=== PATIENT | female | born 1975 ===

== ENCOUNTER 2017-08-21 09:43 | Day surgery (SDC) | payer BC ==
[2017-08-20 12:26] VITALS: BMI 18.6
[2017-08-21] MEDS ORDERED: BUPIVACAINE HCL/PF 0.5% (5MG/ML) 10 ML VIAL ONE (11:28)
[2017-08-21] MEDS ORDERED: MICROFIBRILLAR COLLAGEN 1 GM EACH ONE (11:29)
[2017-08-21] MEDS ORDERED: PROPOFOL 20 ML ONE (11:30)
[2017-08-21] MEDS ORDERED: MIDAZOLAM HCL 2 MG/2 ML SINGLE DOSE VIAL ONE (11:30)
[2017-08-21] MEDS ORDERED: SUCCINYLCHOLINE CHLORIDE 200 MG/10 ML VIAL ONE (11:31)
[2017-08-21] MEDS ORDERED: DEXAMETHASONE SOD PHOSPHATE 4 MG/1 ML VIAL ONE (11:31)
[2017-08-21] MEDS ORDERED: KETOROLAC TROMETHAMINE 30 MG/1 ML VIAL ONE (11:31)
[2017-08-21] MEDS ORDERED: fentaNYL CITRATE 250 MCG/5 ML VIAL ONE (11:31)
[2017-08-21] MEDS ORDERED: ceFAZolin SODIUM 1 GM VIAL ONE (11:31)
--- NOTE | 2017-08-21 11:34 | HP ---
History & Physical Update - History History: No Change - Physical Physical: No Change - Assessment Assessment: No Change (no change since visit on 08/14/17 with PCP) - Plan Plan: No Change
[2017-08-21] MEDS ORDERED: ceFAZolin SODIUM 1 GM VIAL IVPB ONE (11:53)
[2017-08-21] MEDS ORDERED: MICROFIBRILLAR COLLAGEN 1 GM EACH TP ONE (13:06)
[2017-08-21] MEDS ORDERED: ONDANSETRON 4 MG/2 ML VIAL IVPUSH PRN (13:39)
[2017-08-21] MEDS ORDERED: oxyCODONE HCL 5 MG TABLET PO PRN (13:39)
[2017-08-21] MEDS ORDERED: PROMETHAZINE HCL 25 MG/1 ML VIAL IVPUSH PRN (13:39)
--- NOTE | 2017-08-21 14:10 | OP ---
DATE OF OPERATION: 08/21/2017 SURGICAL ATTENDING: Wiley Boo MD DIGITAL ACCOUNT EXECUTIVE: XUAN Lang ANESTHESIOLOGIST: Jasson Reyes MD PREOPERATIVE DIAGNOSIS: Thyroid nodule. POSTOPERATIVE DIAGNOSIS: Thyroid nodule. ANESTHESIA: General endotracheal. PROCEDURE: 1. Left hemithyroidectomy. 2. Cervical lymph node biopsy. DESCRIPTION OF PROCEDURE: Patient was taken into the operating room, placed in a supine position, endotracheally intubated. Eye pads were placed. Shoulder roll was placed. Ultrasound was performed showing a left medial lobe thyroid nodule. There was also some hypoechogenicity in the left upper pole of the left lobe as well. There was no abnormality in the right lobe, and no adenopathy was seen. The patient was then prepped and draped in the usual sterile fashion. Local anesthesia was administered, and a 4-cm horizontal incision was made in an anterior lower midline neck crease. This was carried down through subcutaneous tissues and platysma. Subplatysmal flaps were raised superiorly and inferiorly, and flap hooks were placed for exposure. The midline raphe was incised, and the left side of strap muscles were elevated off the thyroid gland. The isthmus was transected. The recurrent laryngeal nerve and superior laryngeal nerves were preserved. The parathyroid glands were preserved. Superior, posterior, and inferior attachments of the thyroid gland were transected, and it was shaved off the trachea. In this way, the left thyroid lobe was removed. It was checked for parathyroid tissue. None was found. It was then sent to Pathology for permanent evaluation. Hemostasis was achieved with electrocautery and Avitene. Note that the nerve monitoring system was used throughout. The wound was then closed in 3 layers. Sterile dressings were placed. The patient was then awakened, extubated, and taken to recovery in stable condition. Dr. Boo, the attending surgeon, was present throughout the entire procedure. WILEY BOO M.D. [id number]
--- NOTE | 2017-08-21 14:22 | OP ---
Operative Note - Note: Operative Date: 08/21/17 Pre-Operative Diagnosis: Thyroid nodule Operation: Left hemithyroidectomy. cervical lymph node dissection Post-Operative Diagnosis: Same as Pre-op Surgeon: Kevin Cummings Envelope Maker: Lashay Oswald Anesthesiologist/HEAD GIRLS GOLF COACH: Jasson Reyes Anesthesia: General Specimens Removed: left thyroid nodule, pretracheal lymph node. Estimated Blood Loss (mls): 20 Fluid Volume Replaced (mls): 1,000 Operative Report Dictated: Yes
--- NOTE | 2017-08-21 14:26 | SURG ---
Surgery Scratch Finisher Note Scratch Finisher: Lashay Oswald PA-C Date of Service: 08/21/17 Diagnosis: Left hemithyroidectomy cervical lymph node dissection Procedure: Left hemithyroidectomy cervical lymph node dissection I was present for the entirety of the operative procedure. For further detail, please refer to operative report. Visit type - Case Type Case Type: Scheduled - Emergency Emergency Visit: No - New patient This patient is new to me today: Yes Date on this admission: 08/21/17
[2017-08-21] MEDS ORDERED: LACTATED RINGERS SOLUTION 1,000 ML IV SCH (17:00)
[2017-08-21] MEDS ORDERED: oxyCODONE HCL 5 MG TABLET ONE (17:11)
[2017-08-21 17:48] VITALS: TEMP 97.8
[2017-08-21 18:04] VITALS: BP 127/68; PULSE 92
--- NOTE | 2017-08-27 14:14 | PATH ---
Surgical Pathology Report Patient Name: TONY OCASIO [facility]. Rec. #: [id number] /Age/Gender: 1975 (Age: 42) / F Account: [id number] Location: [facility] SURGICAL Taken: 08/21/2017 Received: 08/21/2017 Reported: 08/27/2017 Physicians: Kevin Cummings M.D. Specimen(s) Received A: PRETRACHEAL LYMPH NODE LEFT B: THYROID, LEFT TOTAL LOBE Clinical History Pretracheal lymph node, thyroid nodule Intraoperative Consult Diagnosis Pretracheal lymph node, frozen section: No malignancy identified. Kyleigh Coello M.D., 08/21/17 Final Diagnosis A. Pretracheal, lymph node, excision (FS): One benign lymph node (0/1). B. Thyroid, left, HEMIthyroidectomy: Papillary thyroid carcinoma, follicular variant, INFILTRATIVE. CARCINOMA measurES 9 mm in greatest microscopic dimension. No lymphovascular invasion identified. NO extrathyroidal extension identified. Surgical margins are negative. Remainder of THYROID parenchyma shows MULTInodular HYPERPLASIA AND AREAS OF CHRONIC LYMPHOCYTIC THYROIDITIS. One benign lymph node (0/1). SEE Invasive summary below. PATHOLOGIC STAGE (pTNM): pT1a pN0 Comment: Office of Dr. Cummings informed that significant findings will be faxed ([employer]). Comments Thyroid: Surgical Pathology Cancer Case Summary (Based on AJCC 8 th edition) Procedure _X_ Left lobectomy Tumor Focality _X__ Unifocal Tumor Site _X_ Left lobe Tumor Size Greatest dimension (centimeters): _0.9_ cm Histologic Type Papillary Carcinomas _X__ Papillary carcinoma, follicular variant, infiltrative Margins _X_ Uninvolved by carcinoma Angioinvasion (Vascular Invasion) _X_ Not identified Lymphatic Invasion _X_ Not identified Extrathyroidal Extension _X_ Not identified Regional Lymph Nodes Lymph Node Examination Number of Lymph Nodes Involved: 0 Number of Lymph Nodes Examined: 2 Specify Tahir Levels _X_ Level - pretracheal, paratracheal and prelaryngeal/Delphian, perithyroidal (central compartment dissection) Pathologic Stage Classification (pTNM, AJCC 8th Edition) For Papillary, Follicular, Poorly Differentiated, Hurthle Cell and Anaplastic Thyroid Carcinoma Primary Tumor (pT) _X_ pT1a: Tumor =1 cm in greatest dimension limited to the thyroid Regional Lymph Nodes (pN) _X_ pN0: No evidence of locoregional lymph node metastasis Additional Pathologic Findings _X_ Adenomatoid nodule(s) or nodular follicular disease (nodular hyperplasia) _X_ Thyroiditis (specify type): Chronic Lymphocytic Thyroiditis Electronically Signed Jhoana Morel M.D. Gross Description A. Received fresh labeled "pretracheal lymph node for frozen," is a 0.6 x 0.5 x 0.3 cm pink-shipman lymph node. The specimen is entirely submitted for frozen section. The frozen section residue is entirely submitted in one cassette for permanent sections. B. Received in formalin labeled "left thyroid lobe," is a 7 g, 4.0 x 2.3 x 1.5 cm intact, unoriented thyroid lobe. The outer capsule is red-brown. Sectioning reveals a 0.9 x 0.8 x 0.6 cm shipman, solid nodule in the presumed inferior pole. The nodule abuts the outer capsule but does not appear to invade through it. The remaining thyroid parenchyma is red-brown and beefy. The specimen is entirely and sequentially submitted from presumed superior to inferior in 8 cassettes (nodule in cassettes 7-8). 08/21/201708/21/2017
== END 2017-08-21 18:05 | disposition home or self-care (01) ==
LOC: JOR 09:43 → JASU-SURG 09:43
PROVIDERS: ATTEND Surgery
PROC: 0GTG0ZZ Resection of Left Thyroid Gland Lobe, Open Approach (ICD-10-PCS; principal; 2017-08-21 11:00)
DX: E04.1 Nontoxic single thyroid nodule (principal)
CPT/HCPCS: 84703; 88305-TC; 88307-TC; 88331-TC; 94760